=== PATIENT | female | born 1975 ===

== ENCOUNTER 2023-01-18 01:06 | Outpatient (REF) | payer SELFPAY ==
[2023-01-18 01:10] VITALS: BP 114/72; PULSE 90; RESP 18; TEMP 36.6; O2SAT 98; BMI 17.4
--- NOTE | 2023-01-18 01:15 | EX.ED.DYSGE1 ---
HPI History of Present Illness Chief Complaint: General Illness Informant: patient Onset/Context/Timing Onset: Today Context: Sudden Onset Timing: Continuous Current Severity: Mild Maximum Severity: Mild Narrative Narrative: 47-year-old female past medical history of cervical disc. Denies she got arrested by [employer] in [place] and there was a warrant out for her arrest in [facility] so they transferred from there [employer] ORs. When they were changing her over to transfer she said she was not feeling well so they brought her in for medical clearance. She denies any headache, denies any chest pain or abdominal pain. Just that she feels weak. She denies being on any medications. She denies any drug use tonight. Prior similar symptoms: No Recent Illness/Hospitalization: No PFSH PFSH Allergy/AdvReac Type Severity Reaction Status Date / Time gabapentin Allergy PT UNSURE Verified 01/18/23 01:10 OF REACTION ROS ROS ED ROS Narrative Denies recent illness. Review of Systems ROS Unobtainable: Denies due to encephalopathy Constitutional Constitutional ED: Denies chills or fever(s) Eyes Eyes: Denies blurry vision ENT ENT ED: Denies ear pain Cardiovascular Cardiovascular: Denies chest pain Respiratory/Chest Respiratory/Chest: Denies cough Gastrointestinal Gastrointestinal: Denies abdominal pain Genitourinary Genitourinary ED: Denies dysuria or hematuria Musculoskeletal Musculoskeletal: Denies arthralgias Integumentary Denies abscess or Abrasions Neurologic Neurologic: Denies headache(s) Psychiatric Psychiatric: Denies anxiety Endocrine Endocrinology: Denies cold intolerance Hematologic/Lymphatic Hematologic/Lymphatic: Reports none Allergic/Immunologic Allergic/Immunologic ED: Denies mouth swelling, tongue swelling, urticaria or other EXAM Physical Exam Narrative Exam Narrative: Well-appearing 47-year-old female. Vital signs are stable and afebrile. She does not look septic nor toxic or in any distress. Pulse ox 90% on room air no signs hypoxia. She is sitting upright in bed. H EENT exam unremarkable. Moist weeks membranes. No signs of trauma on her face or scalp. Neck nontender no lymphadenopathy no meningismus. Lungs clear to auscultation bilaterally. Heart regular rhythm rate about 90 no murmur. Chest wall and ribs nontender. Abdomen soft nontender. No peritoneal signs. No distention. Moving all 4 extremities. 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 Normal dorsi plantarflexion. No edema. No deformity. Back nontender. Neurologically she is awake and alert. Answer questions following commands. Has normal strength and normal range of motion lower extremities. Const Vital Signs: 01/18/23 01:10 Temperature 97.9 F Temperature Source Oral Pulse Rate 90 Respiratory Rate 18 Blood Pressure 114/72 Blood Pressure Mean 86 Pulse Ox 98 Oxygen Delivery Method Room Air Positive well nourished and well developed; Negative for obese, cachectic, contractures or unkempt General Appearance ED: well developed and NAD; Negative for unkempt, cachectic, contractures, cyanotic, diaphoretic or pallor Nutritional Appearance: Negative for cachectic or obese HEENT Reports moist mucous membranes; Denies dry mucous membranes Negative for trauma or tenderness Mouth ED: No dry mucous membranes Mouth: No dry mucous membranes Eyes PERRL and EOMs intact bilaterally General Eye ED: Negative for pale conjunctiva or scleral icterus Neck no lymphadenopathy, supple and no JVD General: Negative for tenderness Lymph Lymphatic: Negative for other Chest Wall inspection of chest normal and palpation of chest normal Chest: Negative for other Resp normal respiratory effort and clear to auscultation bilaterally Effort and Inspection: Negative for retractions Auscultation: Negative for rales, rhonchi or wheezes Cardio regular rate, regular rhythm, S1 normal heart sound, S2 normal heart sound and no murmurs GI normal to inspection, nondistended, normoactive bowel sounds, non-tender, non-distended and no masses Inspection: Negative for abdominal distention Auscultation: normoactive bowel sounds Palpation: soft; Negative for tender or guarding Back/Spine no CVA tenderness General Back: Negative for CVA tenderness Cervical Spine: Negative for cervical spine tenderness Thoracic Spine / Upper Back: Negative for thoracic spinal tenderness Lumbar Spine / Lower Back: Negative for lumbar spinal tenderness Extremity normal to inspection General Extremety ED: Negative for edema or tenderness General Extremity: Negative for edema Neuro oriented x3 and CN's II-XII intact bilaterally Sensorium / Orientation: alert; Negative for orientation impaired, lethargic or stuporous Sensory Exam: No sensory level loss detected Motor Exam: strength 5/5 throughout; Negative for general weakness or strength abnormal Psych mental status grossly normal Appearance: Negative for unkempt Attitude: No agitated Mood & Affect: Negative for depressed, anxious or tearful Skin no rashes or lesions noted, no wounds and skin turgor normal General Skin Exam: elasticity normal; Negative for jaundice or pallor Lesions: No lesion noted Rashes: No rashes noted Trauma: Negative for abrasion Wounds: Negative for wounds noted MDM MDM MDM Narrative Medical decision making narrative: 47-year-old female states that she became ill after being arrested. Her vital signs are completely stable as is her pulse ox at 90% on room air no hypoxia. She clinically does not look septic or toxic or in any distress. She is not dehydrated. Exam is normal. Blood sugar is 121. She will be discharged with the information officer's department and medically cleared for correction. History & Record Review Discussion w/independent historian: Patient Additional record(s) reviewed:: No prior records Lab Data Attestation: I reviewed the patient's lab results. Lab results narrative: Blood sugar was obtained was 121. Discharge Plan Triage Chief Complaint: General Illness ED Provider: Gildardo Page Dx/Rx/DC Orders Clinical Impression: Medical clearance for incarceration, Generalized weakness Activity Restrictions/Additional Instructions: Follow-up with your doctor as needed. Your blood sugar was normal at 121. Disposition Disposition: Home, Self Care
[2023-01-18 01:36] LABS: Bedside Glucose 121 mg/dL (74-106)
== END 2023-01-18 01:25 | disposition home or self-care (01) ==
LOC: ED 01:06
PROVIDERS: Visit Provider Emergency Medicine
DX: Z02.89 Encounter for other administrative examinations (principal); R53.1 Weakness
CPT/HCPCS: 82962